=== PATIENT | female | born 1980 | race Caucasian/White ===

== ENCOUNTER 2017-02-25 05:45 | Day surgery (SDC) | payer BC ==
[~2017-02-25] VITALS: Ht 165.1 cm; Wt 66.3 kg
[~2017-02-25 05:45] MED LIST: MOTRIN 600600 MG/TAB PO; NO HOME MEDICATIONS; PRENATAL VITAMI1 TA5 PO; PRENATAL1 TA7 PO; TUMS500 MG
[2017-02-25 06:22] VITALS: BP 126/77; PULSE 70; TEMP 98
[2017-02-25] MEDS ORDERED: OMEGA-3 1000 MG1 CAP PO (06:34)
[2017-02-25 08:35] VITALS: BP 99/59; PULSE 68; TEMP 97.4
[2017-02-25 08:45] VITALS: PULSE 60
[2017-02-25 09:00] VITALS: BP 105/63; PULSE 55
[2017-02-25 09:15] VITALS: BP 101/63; PULSE 49
[2017-02-25] MEDS ORDERED: TYLENOL 500MG500 MG PO (09:31)
[2017-02-25] MEDS ORDERED: ROXICODONE 55 MG/TAB PO (09:32)
[2017-02-25 09:45] VITALS: BP 103/69; PULSE 66
== END 2017-02-25 10:29 | disposition home or self-care (01) ==
LOC: SDCO 05:45
DX: K42.0 Umbilical hernia with obstruction, without gangrene (principal); R19.01 Right upper quadrant abdominal swelling, mass and lump; Z87.442 Personal history of urinary calculi; Z80.3 Family history of malignant neoplasm of breast; Z82.49 Family history of ischemic heart disease and other diseases of the circulatory system; Z82.3 Family history of stroke
CPT/HCPCS: C1781; J0690; J1100; J1885; J2250; J2405; J2704; J3010; J7120

== ENCOUNTER 2018-02-05 14:57 | Day surgery (SDC) | payer BC ==
[~2018-02-05] VITALS: Ht 165.1 cm; Wt 64.8 kg
[~2018-02-05 14:57] MED LIST changes: +OMEGA-3 1000 MG1 CAP PO; +ROXICODONE 55 MG/TAB PO; +TYLENOL 500MG500 MG PO
[2018-02-05 15:53] VITALS: BP 112/90; PULSE 96; TEMP 97.9
[2018-02-05 17:29] VITALS: BP 99/59; PULSE 72; TEMP 97
[2018-02-05 17:45] VITALS: BP 108/73; PULSE 68
[2018-02-05 18:00] VITALS: BP 97/63; PULSE 50
== END 2018-02-05 18:25 | disposition home or self-care (01) ==
LOC: SDCO 14:57
DX: K63.3 Ulcer of intestine (principal); R19.7 Diarrhea, unspecified; K92.1 Melena; A03.9 Shigellosis, unspecified
CPT/HCPCS: J2250; J2405; J3010

== ENCOUNTER → 2019-03-23 | Outpatient (CLI) | payer BC | LOC: MC.RAD 12:49 | DX: N63.10 Unspecified lump in the right breast, unspecified quadrant (principal); N63.20 Unspecified lump in the left breast, unspecified quadrant | CPT/HCPCS: G0279 ==

== ENCOUNTER → 2019-10-08 | Outpatient (CLI) | payer BC | LOC: MC.RAD 09:54 | DX: D24.2 Benign neoplasm of left breast (principal) ==

== ENCOUNTER → 2020-04-21 | Outpatient (CLI) | payer BC ==
[~2020-04-21] MED LIST changes: +AIRBORNE CHEWA1 EAC1 PO; +ATIVAN 1MG T1 MG/TAB PO; +FLOMAX 0.40.4 MG/CAP PO; +MULTI VITAMINS1 TAB PO; +NORCO 325 MG-51 TAB PO; +PERCOCET 325 MG1 TA2 PO; +PROBIOTIC DIGE1 EACH PO; +ZOFRAN ODT4 MG PO
== END ==
LOC: MC.RAD 09:57
DX: N63.42 Unspecified lump in left breast, subareolar (principal)

== ENCOUNTER → 2020-12-15 | Outpatient (CLI) | payer BC | LOC: COL.RAD 09:10 | DX: N13.30 Unspecified hydronephrosis (principal) ==

== ENCOUNTER → 2020-12-26 | Outpatient (CLI) | payer BC | LOC: COL.RAD 11:50 | DX: Q62.11 Congenital occlusion of ureteropelvic junction (principal) | CPT/HCPCS: A9562; J1940 ==

== ENCOUNTER 2021-01-07 20:57 | Emergency (ER) | payer BC ==
[~2021-01-07] VITALS: Ht 172.7 cm; Wt 68.2 kg
[~2021-01-07 20:57] MED LIST changes: -AIRBORNE CHEWA1 EAC1 PO; -ATIVAN 1MG T1 MG/TAB PO; -FLOMAX 0.40.4 MG/CAP PO; -MULTI VITAMINS1 TAB PO; -NORCO 325 MG-51 TAB PO; -PERCOCET 325 MG1 TA2 PO; -PROBIOTIC DIGE1 EACH PO; -ZOFRAN ODT4 MG PO
[2021-01-07 21:02] VITALS: TEMP 97.6
[2021-01-07 21:25] LABS: BASO # 0.1 K/mm3 (0.0-0.2); BASO % 0.6 % (0.0-2.0); EOS # 0.1 K/mm3 (0.0-0.7); EOS % 0.6 % (0-4.0); GRAN # 5.8 K/mm3 (1.4-6.5); GRAN % 67.9 % (42.2-75.2); HEMATOCRIT 41.4 % (37.0-47.0); HEMOGLOBIN 13.8 g/dl (12.5-16.0); LYMPH # 1.8 K/mm3 (1.2-3.4); LYMPH % 21.3 % (20.0-51.0); MEAN CELL VOLUME 83 fl (80.0-100.0); MEAN CORPUSCULAR HEMOGLOBIN 28 pg (27.0-31.0); MEAN CORPUSCULAR HGB CONC 33 g/dl (33.0-37.0); MEAN PLATELET VOLUME 10.9 fl (7.4-10.4); MONO # 0.8 K/mm3 (0.1-0.6); MONO % 9.2 % (1.7-9.3); PLATELET COUNT 193 K/mm3 (130-400); RED BLOOD COUNT 5.02 M/mm3 (4.10-5.30); REDCELL DISTRIBUTION WIDTH-CV 13.2 % (11.5-14.5)
[2021-01-07] MEDS ORDERED: AIRBORNE CHEWA1 EAC1 PO (21:30)
[2021-01-07] MEDS ORDERED: PROBIOTIC DIGE1 EACH PO (21:30)
[2021-01-07] MEDS ORDERED: MULTI VITAMINS1 TAB PO (21:30)
[2021-01-07] MEDS ORDERED: NORCO 325 MG-51 TAB PO (21:31)
[2021-01-07] MEDS ORDERED: FLOMAX 0.40.4 MG/CAP PO (21:32)
[2021-01-07 21:39] LABS: ALBUMIN 4.2 gm/dL (3.5-5.0); BILIRUBIN,TOTAL 0.6 mg/dL (0.2-1.2); CALCIUM 9.7 mg/dL (8.4-10.2); CREATININE, serum 1.24 mg/dL (0.57-1.11); POTASSIUM 3.4 mmol/L (3.5-4.5); TOTAL PROTEIN 7.3 gm/dL (6.2-8.1)
[2021-01-07 21:45] LABS: COLLECTION METHOD CLEAN CATCH
[2021-01-07 21:51] LABS: MUCOUS Present (NOT PRESENT); PH 7 (5-8); SQUAMOUS EPITHELIAL None Seen /hpf (0-10); URINE APPEARANCE Hazy (CLEAR/HAZY); URINE BACTERIA Rare (NONE SEEN); URINE BILIRUBIN Negative (NEGATIVE); URINE BLOOD 1+ (NEGATIVE); URINE COLOR Yellow (YELLOW); URINE GLUCOSE Negative (NEGATIVE); URINE KETONE Negative (NEGATIVE); URINE LEUKOCYTE ESTERASE Negative (NEGATIVE); URINE NITRATE Negative (NEGATIVE); URINE PROTEIN(semi-quant) Negative (NEGATIVE); URINE RBC >50 /hpf (0-2); URINE UROBILINOGEN Negative (NEGATIVE)
[2021-01-07] MEDS ORDERED: ATIVAN 1MG T1 MG/TAB PO (23:21)
[2021-01-07] MEDS ORDERED: ZOFRAN ODT4 MG PO (23:21)
[2021-01-07] MEDS ORDERED: PERCOCET 325 MG1 TA2 PO (23:21)
[2021-01-08 00:27] VITALS: BP 114/78; PULSE 87
== END 2021-01-08 00:27 | disposition home or self-care (01) ==
LOC: COL.ER 20:57
PROVIDERS: Personal Emergency Response Attendant
DX: N13.0 Hydronephrosis with ureteropelvic junction obstruction (principal); F41.9 Anxiety disorder, unspecified; Z86.16 Personal history of COVID-19; Z32.02 Encounter for pregnancy test, result negative
CPT/HCPCS: J2060; J2270; J2405; J7030

== ENCOUNTER → 2021-01-30 | Outpatient (CLI) | payer BC ==
[~2021-01-30] MED LIST changes: +AIRBORNE CHEWA1 EAC1 PO; +ATIVAN 1MG T1 MG/TAB PO; +FLOMAX 0.40.4 MG/CAP PO; +MULTI VITAMINS1 TAB PO; +NORCO 325 MG-51 TAB PO; +PERCOCET 325 MG1 TA2 PO; +PROBIOTIC DIGE1 EACH PO; +ZOFRAN ODT4 MG PO
== END ==
LOC: COL.RAD 01-25 10:00
DX: R13.14 Dysphagia, pharyngoesophageal phase (principal)

== ENCOUNTER → 2021-01-31 | Outpatient (CLI) | payer BC | LOC: COL.RAD 01-26 10:30 | DX: G44.209 Tension-type headache, unspecified, not intractable (principal) ==

== ENCOUNTER 2021-02-08 08:35 | Inpatient (IN) | payer BC ==
--- NOTE | 2021-02-21 09:05 | NUR ---
PATIENT ARRIVED TO AMBULATORY UNIT. PATIENT CALLED DR EDWARDS EARLY THIS AM REGARDING SYMPOTOMS OF FEVER, COUGH, CHEST TIGHTNESS, CHILLS, HEADACHE, AND SORE THROAT. PATIENT TESTED POSITIVE FOR COVID --01/08/21. DR HERNANDEZ REQUESTED ANESTHESIA TO SEE AND ASSESS THE PATIENT. HE ORDERED CBC AND UA. PATIENT NOT VACCINATED FOR COVID. PATIENT IN ROOM AND TEMP CHECKED --99.4 F. LUNGS SOUNDS ALITTLE DIMINISHED TO RIGHT SIDE. CLEAR TO AUSCULATION. RENY QUINTANILLA CRNA IN ROOM AND SPEAK WITH AND PATIENT. NASAL TEST ORDERED FOR COVID AND FLU A & B. QUESTIONS ANSWERED. CBC ON HOLD. UA COLLECTED. NARES SPECIEM COLLECTED AND SENT TO LAB. PATIENT RESTING ON CART. PATIENT HAS CHILLS AND WARM BLANKET PROVIDED. IN ROOM.
[2021-02-21 09:48] LABS: COLLECTION METHOD CLEAN CATCH
[2021-02-21 09:59] LABS: PH 6 (5-8); URINE APPEARANCE Clear (CLEAR/HAZY); URINE BACTERIA Rare /hpf (NONE SEEN); URINE BILIRUBIN Negative (NEGATIVE); URINE BLOOD Negative (NEGATIVE); URINE COLOR Yellow (YELLOW); URINE GLUCOSE Negative (NEGATIVE); URINE KETONE Negative (NEGATIVE); URINE LEUKOCYTE ESTERASE Negative (NEGATIVE); URINE NITRATE Negative (NEGATIVE); URINE PROTEIN(semi-quant) Negative (NEGATIVE); URINE RBC 0-2 /hpf (0-2); URINE UROBILINOGEN Negative (NEGATIVE); URINE WBC 0-2 /hpf (0-2)
--- NOTE | 2021-02-21 10:48 | NUR ---
PATIENT'S LAB CAME BACK. PATIENT IS POSITIVE FOR FLU A. RENY QUINTANILLA CRNA NOTIFIED. HE STATED PATIENT MAY GO HOME. SURGERY CANCELLED. PATIENT WALKS WITH FROM DEPARTMENT TO [facility].
== END 2021-02-21 10:48 | disposition home health service (06) | DRG 690 ==
LOC: INPTSU 02-21 08:54 → SURG 02-21 12:15
PROVIDERS: ADMIT Urology
DX: N13.5 Crossing vessel and stricture of ureter without hydronephrosis (principal); K21.9 Gastro-esophageal reflux disease without esophagitis; Z20.822 Contact with and (suspected) exposure to COVID-19; Z53.8 Procedure and treatment not carried out for other reasons
CPT/HCPCS: OP

== ENCOUNTER 2021-03-27 10:16 | Inpatient (IN) | payer BC ==
[~2021-03-27] VITALS: Ht 165.1 cm; Wt 67.4 kg
[2021-06-20] VITALS (11 sets, daily range): BP systolic 106–134; BP diastolic 72–87; PULSE 59–77; TEMP 97.7–98.6
--- NOTE | 2021-06-20 08:29 | NUR ---
PT AMBULATED TO BAY 8 ACCOMPANIED BY . VS OBTAINED. CONSENT SIGNED. 20G IV INFUSING LR IN L WRIST. ASSESSMENT COMPLETED. ORIENTED TO ROOM AND CALL LIGHT. VERBALIZED UNDERSTANDING. CALL LIGHT WITHIN REACH. PT DENIES ANY ADDITIONAL NEEDS AT THIS TIME. WILL CONTINUE TO MONITOR PT.
[2021-06-20] MEDS ORDERED: PYRIDIUM 100MG100 MG PO (09:59)
[2021-06-20] MEDS ORDERED: NORCO 325 MG-51 TAB PO (10:00)
--- NOTE | 2021-06-20 12:00 | NUR ---
PT ARRIVES FROM PACU. IS ASLEEP BUT EASILY AWAKENS TO NAME. IVF INFUSING. PERES CATHETER DRAINING DEPENDENTLY. URINE IS RUST COLORED ET CLOUDY. PT BECOMES TEARY ET ASKS ABOUT HER , WHO ARRIVES SHORTLY AFTER PT ARRIVES. PT RATES ABDOMINAL PAIN 1/10 BUT CONTINUES TO BE TEARY, STATES THAT SHE WOULD NOT LIKE TO TAKE NARCOTIC PAIN MEDS, HAVE CAUSED HER PROBLEMS WITH PAST SURGERIES.
--- NOTE | 2021-06-20 16:15 | NUR ---
IV IN PT'S LEFT WRIST SALINE LOCKED @ THIS TIME. PT TOLERATING FLUIDS WELL. PERES CATHETER DRAINING DEPENDENTLY, URINE IS LIGHT YELLOW ET CLEAR. PT HAS BEEN UP TO AMBULATE IN HALLWAY X1, WALKED APPROXIMATELY 150 FT WITH SBA. DRAIN TO BULB SUCTION, DRAINAGE IS SANGUINEOUS. PT STATES THAT PAIN IS MINIMAL ET IS MORE "SORENESS" THAN ANYTHING. PT RATES ABDOMINAL PAIN /. REMAINS @ BEDSIDE. PT HAS BEEN EATING SALTINE CRACKERS ET CHICKEN BROTH.
--- NOTE | 2021-06-20 22:50 | NUR ---
PATIENT ALERT AND ORIENTED. MINIMAL PAIN AT SHIFT CHANGE, HOWEVER AT 2100 C/O MODERATE PAIN TO ABD AND BACK. PRN JENNIFER + ZOFRAN GIVEN. PATIENT AMBULATED IN HALLS WITH STANDBY ASSIST TO HELP WITH GAS PAINS. SCHEDULED MEDS PER EMAR. LARISA TO DD WITH CLOUDY PINK OUTPUT. INT L WRIST PATENT AND FLUSHED. CURRENTLY IN BED EATING SALTINE CRACKERS. CALL LIGHT IN REACH.
[2021-06-21 00:03] VITALS: BP 114/65; BP 116/70; PULSE 81; PULSE 816; TEMP 97.8; TEMP 98.1
[2021-06-21 04:25] VITALS: BP 123/74; PULSE 59; TEMP 98.5
--- NOTE | 2021-06-21 05:34 | NUR ---
ORDER TO DC PERES. DISCUSSED PROCEDURE WITH PATIENT WHO IS UNDERSTANDING AND AGREEABLE. 10 MLS REMOVED FROM BALLOON. CATHETER OUT, BALLOON INTACT. TOLERATED PROCEDURE WELL. PATIENT UP AND AMBULATED IN GAN WITH STANDBY ASSIST.
--- NOTE | 2021-06-21 07:07 | NUR ---
PT RESTING QUIETLY IN BED, HAS ORDERED BREAKFAST. PT STATES THAT SHE HAS BEEN UP TO BR TO URINATE X1 SINCE CATHETER HAS BEEN REMOVED. URINE IS REDDISH ET CLEAR. GIVEN FRESH ICE WATER ET A WARM BLANKET. PT DENIES OTHER NEEDS. CALL LIGHT WITHIN REACH.
--- NOTE | 2021-06-21 07:08 | NUR ---
PT USING INCENTIVE SPIROMETER CORRECTLY ET INDEPENDENTLY.
[2021-06-21 07:10] VITALS: BP 109/70; PULSE 64; TEMP 98.3
--- NOTE | 2021-06-21 09:09 | NUR ---
Social Work student met with patient to discuss discharge planning. Patient lives in [place], [place] with her , Leon(ph#[phone]), and three kids. Patient sees Dr. Major Garrett for primary care, and she states she receives her medications from [facility]. Patient does not utilize any durable medical equiptment, and she states she is independent with her ADL's. Patient has a DPOA-HC on file that lists her , Leon as the primary agent. *Discharge plan: Home*
--- NOTE | 2021-06-21 09:35 | NUR ---
URINE IS NOW PINK ET CLEAR, NO SEDIMENT SEEN.
--- NOTE | 2021-06-21 10:24 | NUR ---
Initial visit; Patient thanked Electric Truck Crane Operator for looking in on her and offering God's blessings and positive conversation.
--- NOTE | 2021-06-21 11:19 | NUR ---
PT UP AMBULATING IN HALLWAY INDEPENDENTLY, TOLERATING WELL.
[2021-06-21 12:00] VITALS: BP 133/80; PULSE 76; TEMP 98.5
--- NOTE | 2021-06-21 15:59 | NUR ---
ASMITA DRAIN REMOVED. PT. TOLERATED PROCEDURE WELL.
[2021-06-21 16:00] VITALS: BP 133/74; PULSE 70; TEMP 98.9
--- NOTE | 2021-06-21 16:29 | NUR ---
PT. WAS COMPLAINING OF PAIN AFTER URINATING. THIS NURSE CALLED PA. BROOKE AND AN ORDER FOR PYRIDIUM WAS PLACED. SEE EMAR.
--- NOTE | 2021-06-21 17:16 | NUR ---
Reviewed discharge instructions with pt. Pt reports feeling much better since getting the drain out. Pt not having much pain at this time. Discussed pain management as incision care. All questions answered, INT removed. Pt has ordered some dinner. Informed her to notify nursing when she is ready to be escorted out
== END 2021-06-21 18:05 | disposition home or self-care (01) | DRG 661 ==
LOC: INPTSU 06-20 05:31 → SURG 06-20 05:31
PROVIDERS: ADMIT Urology
PROC: 0T744DZ Dilation of Left Kidney Pelvis with Intraluminal Device, Percutaneous Endoscopic Approach (ICD-10-PCS; 2021-06-20)
PROC: 8E0W4CZ Robotic Assisted Procedure of Trunk Region, Percutaneous Endoscopic Approach (ICD-10-PCS; 2021-06-20)
PROC: 0TJB8ZZ Inspection of Bladder, Via Natural or Artificial Opening Endoscopic (ICD-10-PCS; 2021-06-20)
PROC: 0TQ44ZZ Repair Left Kidney Pelvis, Percutaneous Endoscopic Approach (ICD-10-PCS; principal; 2021-06-20 07:30)
DX: N13.5 Crossing vessel and stricture of ureter without hydronephrosis (principal)
CPT/HCPCS: A4314; A9284; C1769; C2617; J0690; J1100; J1885; J2175; J2250; J2405; J2704; J3010; J7120

== ENCOUNTER → 2021-06-06 | Outpatient (CLI) | payer BC ==
[~2021-06-06] MED LIST changes: +PYRIDIUM 100MG100 MG PO
== END ==
LOC: COL.RAD 10:34
DX: N13.30 Unspecified hydronephrosis (principal); R22.1 Localized swelling, mass and lump, neck

== ENCOUNTER → 2021-06-09 | Outpatient (CLI) | payer BC | LOC: MC.RAD 13:51 | DX: Z12.31 Encounter for screening mammogram for malignant neoplasm of breast (principal) ==

== ENCOUNTER → 2021-06-18 | Outpatient (CLI) | payer BC | LOC: COL.LAB 13:15 | DX: Q62.11 Congenital occlusion of ureteropelvic junction (principal) ==

== ENCOUNTER → 2023-02-28 | Outpatient (CLI) | payer BC | LOC: COL.RAD 12:41 | DX: N30.01 Acute cystitis with hematuria (principal) | CPT/HCPCS: Q9967 ==

== ENCOUNTER → 2023-11-21 | Outpatient (CLI) | payer BC | LOC: MC.RAD 07:42 | DX: Z12.31 Encounter for screening mammogram for malignant neoplasm of breast (principal); R92.0 Mammographic microcalcification found on diagnostic imaging of breast ==

== ENCOUNTER → 2023-12-04 | Outpatient (CLI) | payer BC | LOC: MC.RAD 06:58 | DX: R92.8 Other abnormal and inconclusive findings on diagnostic imaging of breast (principal) | CPT/HCPCS: A4648 ==